=== PATIENT | female | born 1970 | race Caucasian/White ===

== ENCOUNTER 2017-07-10 17:50 | Emergency (ER) | payer MEDICARE, MEDICAID ==
[2017-07-10 18:11] VITALS: BP 179/92
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
[2017-07-10] MEDS ORDERED: Albuterol/Ipratropium 3.0-0.5 MG/3 ML Neb Soln NEB ONE (19:07)
[2017-07-10 19:26] LABS: CHLORIDE,CL 102 mmol/L (98-115); SODIUM,NA 137 mmol/L (136-145)
== END 2017-07-10 19:50 | disposition home or self-care (01) ==
LOC: KA.ED 17:50
DX: J20.9 Acute bronchitis, unspecified (principal); I10 Essential (primary) hypertension; I25.10 Atherosclerotic heart disease of native coronary artery without angina pectoris; J44.9 Chronic obstructive pulmonary disease, unspecified; F32.9 Major depressive disorder, single episode, unspecified; F17.210 Nicotine dependence, cigarettes, uncomplicated; Z79.2 Long term (current) use of antibiotics; Z79.899 Other long term (current) drug therapy; Z88.2 Allergy status to sulfonamides
CPT/HCPCS: 36415; 71020; 80048; 85025; 87040; 99283

== ENCOUNTER 2019-02-11 18:30 | Emergency (ER) | payer MEDICARE, MEDICAID ==
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
[2019-02-11 19:02] VITALS: BP 107/64; PULSE 70
== END 2019-02-11 18:55 | disposition home or self-care (01) ==
LOC: KA.ED 18:30
DX: I10 Essential (primary) hypertension (principal)
CPT/HCPCS: 51102; 51705; 99283; 99285

== ENCOUNTER 2019-04-26 19:05 | Emergency (ER) | payer MEDICARE, MEDICAID ==
[2019-04-26] MEDS ORDERED: EPINEPHrine 1:10,000 1 MG/10 ML Syringe IVPUSH ONE ×9 (19:12→20:30)
[2019-04-26] MEDS: Sodium Chloride 0.9% 10 ML Syringe FLUSH PRN ×13 (19:12→20:30)
[2019-04-26] MEDS ORDERED: Naloxone 0.4 MG/ML SDV IVPUSH ONE (19:14)
[2019-04-26] MEDS ORDERED: Sodium Chloride 0.9% 1,000 ML IV ONE ×2 (19:20→20:20)
[2019-04-26] MEDS ORDERED: Sodium Bicarbonate 8.4% 50 MEQ/50 ML Syringe IVPUSH ONE (19:26)
[2019-04-26] MEDS ORDERED: Sodium Bicarbonate 8.4% 50 MEQ/50 ML SDV IV ONE (19:26)
[2019-04-26] MEDS ORDERED: EPINEPHrine 4 MG in Dextrose 5% in Water 250 ML IV SCH ×2 (19:54)
[2019-04-26] MEDS ORDERED: 50% Dextrose in Water 50 ML Syringe IVPUSH ONE ×2 (20:16→20:28)
--- NOTE | 2019-04-26 20:17 | CR ---
[id number] RAD/RAD Chest PA or AP 1V EXAM: FRONTAL CHEST INDICATION: Cardiac arrest with intubation. COMPARISON: April 26, 2018. DISCUSSION: Cardiomegaly without evidence of congestive heart failure. Bibasilar scarring or atelectasis. The endotracheal tube tip projects over the right mainstem bronchus. The nasogastric tube tip overlies the gastroesophageal junction. IMPRESSION: 1. Endotracheal tube tip overlies the right mainstem bronchus and could be retracted about 4 cm. The nasogastric tube tip is at the gastroesophageal junction and could be advanced. Emery Hall MD 04/26/192014 Thank you for allowing us to participate in the care of your patient.
[2019-04-26 20:48] LABS: ANION GAP 26.9 mmol/L (5-15); CHLORIDE,CL 122 mmol/L (98-115); SODIUM,NA 158 mmol/L (136-145)
[2019-04-27] MEDS ORDERED: Sodium Chloride 0.9% 50 ML SDV FLUSH PRN (06:24)
[2019-04-27] MEDS ORDERED: EPINEPHrine 4 MG in Dextrose 5% in Water 250 ML IV SCH ×2 (08:15)
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
== END 2019-04-26 21:15 | disposition expired ==
LOC: KA.ED 19:05
DX: I46.9 Cardiac arrest, cause unspecified (principal); I10 Essential (primary) hypertension; F41.9 Anxiety disorder, unspecified; F32.9 Major depressive disorder, single episode, unspecified; Z79.899 Other long term (current) drug therapy; Z88.2 Allergy status to sulfonamides
CPT/HCPCS: 31500; 36415; 71045; 80053; 82962; 84484; 85025; 85610; 85730; 92950; 93005; 96361; 96365; 96375; 96376; 99291-25; 99292; G0480; J0171; J2310; J7030; J7060; Q3014